=== PATIENT | male | born 1975 | race Caucasian/White ===

== ENCOUNTER → 2016-09-14 | Outpatient (CLI) | payer OTHER ==
[~2016-09-14] MED LIST: NORCO 325 MG-51 TAB PO
== END ==
LOC: RAD 15:56
DX: M89.9 Disorder of bone, unspecified (principal); S93.432A Sprain of tibiofibular ligament of left ankle, initial encounter; X58.XXXA Exposure to other specified factors, initial encounter

== ENCOUNTER 2017-02-04 10:00 | Outpatient (RCR) | payer OTHER ==
[2015-12-08 20:02] VITALS: BP 135/74
== END 2017-02-05 13:04 | disposition home or self-care (01) ==
LOC: PT 10:00
DX: M93.872 Other specified osteochondropathies, left ankle and foot (principal)